=== PATIENT | male | born 1985 | race Caucasian/White ===

== ENCOUNTER 2024-04-08 10:20 | Outpatient (OUT) | payer OTHER, SELFPAY ==
--- NOTE | 2024-04-08 | XR_ITS ---
[address] [address] Patient Name: SANDOVAL HARDIN MRN: [id number] date: 1985 Sex: M Assigned Patient Location: Current Patient Location: Accession/Order Number: [id number] Exam Date: 04/08/2024 10:25 Report Date: 04/09/2024 07:56 At the request of: SENIA MEYERS Procedure: XR ankle LT min 3V PROCEDURE: XR foot LT min 3V, XR ankle LT min 3V HISTORY: LEFT FOOT PAIN , left ankle pain COMPARISON: None. FINDINGS: BONES:Moderate degenerative changes the first tarsal-metatarsal joint. Mild flattening of plantar arch. Unremarkable ankle joint. SOFT TISSUES:Mild dorsal soft tissue swelling. EFFUSION:None visible. OTHER: Negative. XR/XR ankle LT min 3V IMPRESSION: 1. Moderate or greater degenerative changes of the first tarsal-metatarsal joint. 2. Mild pes planus. 3. Unremarkable ankle. Electronically authenticated by: TOBY LUND Date: 04/09/2024 07:56
--- NOTE | 2024-04-08 | XR_ITS ---
[address] [address] Patient Name: SANDOVAL HARDIN MRN: [id number] date: 1985 Sex: M Assigned Patient Location: Current Patient Location: Accession/Order Number: [id number] Exam Date: 04/08/2024 10:25 Report Date: 04/09/2024 07:56 At the request of: SENIA MEYERS Procedure: XR foot LT min 3V PROCEDURE: XR foot LT min 3V, XR ankle LT min 3V HISTORY: LEFT FOOT PAIN , left ankle pain COMPARISON: None. FINDINGS: BONES:Moderate degenerative changes the first tarsal-metatarsal joint. Mild flattening of plantar arch. Unremarkable ankle joint. SOFT TISSUES:Mild dorsal soft tissue swelling. EFFUSION:None visible. OTHER: Negative. XR/XR foot LT min 3V IMPRESSION: 1. Moderate or greater degenerative changes of the first tarsal-metatarsal joint. 2. Mild pes planus. 3. Unremarkable ankle. Electronically authenticated by: TOBY LUND Date: 04/09/2024 07:56
== END 2024-04-08 10:21 | disposition home or self-care (01) ==
PROVIDERS: Visit Provider Podiatrist Foot & Ankle Surgery
DX: M25.572 Pain in left ankle and joints of left foot (principal); M21.42 Flat foot [pes planus] (acquired), left foot
CPT/HCPCS: 73610; 73630

== ENCOUNTER 2024-05-04 10:01 | Outpatient (OUT) | payer OTHER, SELFPAY ==
--- NOTE | 2024-05-04 | XR_ITS ---
The [address] [address] Patient Name: SANDOVAL HARDIN MRN: [id number] date: 1985 Sex: M Assigned Patient Location: Current Patient Location: Accession/Order Number: [id number] Exam Date: 05/04/2024 10:02 Report Date: 05/06/2024 09:28 At the request of: SENIA MEYERS Procedure: XR foot LT min 3V PROCEDURE: XR foot LT min 3V HISTORY: LEFT FOOT PAIN COMPARISON: XR foot left 04/08/2024 FINDINGS: BONES:Mild callus formation along neck of 5th metatarsal with relatively normal alignment maintained. Chronic degenerative changes the first metatarsophalangeal joint. SOFT TISSUES:No visible soft tissue swelling. EFFUSION:None visible. OTHER: Negative. XR/XR foot LT min 3V IMPRESSION: 1. Early osseous changes of healing fracture involving the distal 5th metatarsal; new versus occult on prior study. Electronically authenticated by: TOBY LUND Date: 05/06/2024 09:28
== END 2024-05-04 10:02 | disposition home or self-care (01) ==
LOC: EC 10:01
PROVIDERS: Visit Provider Podiatrist Foot & Ankle Surgery
DX: M79.672 Pain in left foot (principal); S92.355D Nondisplaced fracture of fifth metatarsal bone, left foot, subsequent encounter for fracture with routine healing
CPT/HCPCS: 73630